=== PATIENT | female | born 1980 | race Caucasian/White ===

== ENCOUNTER 2018-05-23 13:08 | Emergency (ER) | payer MEDICAID ==
[~2018-05-23] VITALS: Ht 154.9 cm; Wt 72.7 kg
[~2018-05-23 13:08] MED LIST: TRAZ-218 PO
[2018-05-23 13:54] VITALS: BP 153/82
[2018-05-23 13:57] LABS: BASOPHILS % (AUTO) 0 % (0-1); EOSINOPHILS # (AUTO) 0.1 X10'3 (0-0.9); HEMATOCRIT 44.8 % (35.0-45.0); HEMOGLOBIN 15.3 g/dl (12.0-16.0); LYMPHOCYTES # (AUTO) 2.3 X10'3 (1.1-4.8); LYMPHOCYTES % (AUTO) 17.9 % (21-51); MEAN CORPUSCULAR HEMOGLOBIN 29.5 PG (27.0-31.0); MEAN CORPUSCULAR HGB CONC 34.2 g/dL (33.0-36.5); MEAN CORPUSCULAR VOLUME 86.4 FL (78-98); MEAN PLATELET VOLUME 8.2 FL (7.4-10.4); MONOCYTES # (AUTO) 0.5 X10'3 (0-0.9); MONOCYTES % (AUTO) 4.1 % (2-12); NEUTROPHILS # (AUTO) 9.9 X10'3 (1.8-7.7); PLATELET COUNT 290 X10'3 (140-440); RED BLOOD COUNT 5.18 X10'6 (4.20-5.60); WHITE BLOOD COUNT 12.8 X10'3 (4.5-11.0)
[2018-05-23 14:04] LABS: CLARITY,URINE SLIGHTLY CLOUDY (Clear); COLOR,URINE STRAW (Yellow); GLUCOSE, URINE NEGATIVE (Neg); KETONES,URINE NEGATIVE (Neg); LEUKOCYTE ESTERASE ,URINE SMALL (Neg); NITRITES, URINE NEGATIVE (Neg); OCCULT BLOOD,URINE NEGATIVE (Neg); PROTEIN,URINE NEGATIVE (Neg); UROBILINOGEN,URINE 0.2 E.U/dL (0.2-1.0)
[2018-05-23 14:08] LABS: UA COLLECTION TYPE CLN CATCH MIDSTREAM
[2018-05-23 14:10] LABS: SQUAMOUS EPITHELIAL CELL,UR MODERATE /LPF (FEW)
[2018-05-23 14:11] LABS: BACTERIA,URINE 1+ /HPF (Neg); RBC,URINE 0-2 /HPF (0-2)
[2018-05-23 14:12] LABS: ALANINE AMINOTRANSFERASE 30 U/L (12-78); ALBUMIN 3.6 G/DL (3.4-5.0); ALBUMIN/GLOBULIN RATIO 0.8 (1.1-1.5); ALKALINE PHOSPHATASE 62 IU/L (46-116); ANION GAP 13 (8-16); ASPARTATE AMINO TRANSFERASE 17 U/L (10-37); BILIRUBIN,TOTAL 0.4 MG/DL (0.1-1.0); BLOOD UREA NITROGEN 4 MG/DL (7-18); CHLORIDE 101 MMOL/L (99-107); GLUCOSE 94 MG/DL (70-104); POTASSIUM 3.8 MMOL/L (3.5-5.1); SODIUM 139 MMOL/L (135-145); TOTAL CARBON DIOXIDE 25.3 MMOL/L (24-32); TOTAL PROTEIN 7.9 G/DL (6.4-8.2); eGFR 82 ML/MIN
[2018-05-23 14:13] LABS: TRICHOMONAS,URINE MOD /HPF (NEGATIVE); WBC,URINE 0-4 /HPF (0-4)
[2018-05-23 14:14] LABS: TRANSITIONAL EPI CELLS,URINE FEW /HPF
== END 2018-05-23 14:37 | disposition left against medical advice (07) ==
LOC: ER 13:09
DX: Z00.8 Encounter for other general examination (principal); Z56.0 Unemployment, unspecified; Z79.899 Other long term (current) drug therapy
CPT/HCPCS: 36415; 80053; 81001; 85025; 87088; 99283

== ENCOUNTER 2018-05-23 20:45 | Emergency (ER) | payer MEDICAID ==
[~2018-05-23] VITALS: Ht 154.9 cm; Wt 75.0 kg
[2018-05-23 20:55] VITALS: BP 114/61
[2018-05-23] MEDS ORDERED: metroNIDAZOLE 500mg tablet PO ONE (21:20)
--- NOTE | 2018-05-23 21:36 | NUR ---
TELE PSYCH CONSULE INITIATED
--- NOTE | 2018-05-23 22:14 | NUR ---
PATIENT PROVIDED A BLANKET CURRENTLY IN BED COVERS ON EYES CLOSED NO OBSERVABLE S/S OF ACUTE STRESS AT THIS TIME
[2018-05-23 22:20] LABS: URINE AMPHETAMINE SCREEN NEGATIVE (Neg); URINE BARBITUATE SCREEN NEGATIVE (Neg); URINE BENZODIAZEPINES SCREEN NEGATIVE (Neg); URINE CANNABINOID SCREEN NEGATIVE (Neg); URINE COCAINE SCREEN NEGATIVE (Neg); URINE METHADONE SCREEN NEGATIVE (Neg); URINE OPIATE SCREEN NEGATIVE (Neg); URINE PHENCYCLIDINE SCREEN NEGATIVE (Neg)
--- NOTE | 2018-05-23 23:37 | NUR ---
SPOKE TO PSYCH WILL BE CALLING TELE MACHINE ANY MOMENT
--- NOTE | 2018-05-24 01:47 | NUR ---
tele recommendation is to have patient evaluated for possible involuntary hold, dr. limon applied [id number] patient will be evaluated by the [facility] in a.m. 05/24/18
--- NOTE | 2018-05-24 01:49 | NUR ---
patient requested hob down to be flat, patient in good spirits when finding out patient will be evaluated by [facility] in the a.m.
--- NOTE | 2018-05-24 02:49 | NUR ---
patient in room in bed covers on eyes closed rr even and un-labored no observable s/s of acute stress at this time
--- NOTE | 2018-05-24 04:41 | NUR ---
PATIENT IN ROOM ASKING TO LEAVE STATED TO PATIENT THAT THEY ARE CURRENTLY ON A INVOLUNTARY HOLD AND WILL BE EVALUATED IN THE A.M. BY [facility] FOR DC'D OR PLACEMENT OR [facility] 5150 HOLD, PATIENT STATED THAT THEY UNDERSTOOD.
--- NOTE | 2018-05-24 05:18 | NUR ---
PATIENT IN ROOM IN BED COVERS ON EYES CLOSED RR EVEN UN-LABORED NO OBSERVABLE S/S OF ACUTE STRESS AT THIS TIME
--- NOTE | 2018-05-24 06:59 | NUR ---
ASSUMED PT CARE, PT SNORING IN BED FOR NOW. TECH ASSESSING BELONGINGS AND FILLING OUT INVENTORY LIST
--- NOTE | 2018-05-24 10:00 | NUR ---
Assummed care of patient. Patient reports mild anxiety and requests something to do. Crayons and paper provided.
--- NOTE | 2018-05-24 11:54 | NUR ---
called pt mom jed cuadra [phone] per pt request, called number, no answer, left message, pt reports she lives with mom/dad and nephew
--- NOTE | 2018-05-24 11:56 | NUR ---
PT MOTHER GISSELLE CALLED BACK, TRANSFERED CALL INTO PT ROOM 21.
--- NOTE | 2018-05-24 12:00 | NUR ---
Patient observed resting.
--- NOTE | 2018-05-24 12:50 | NUR ---
Patient requests medication to help her sleep and also states that she used to take wellbutrin and would like to take that again. Patient reports that she picks her medications up from [facility] in [facility]. Pharmacy contacted, patient last picked up trazadone in January 2018 and last picked up wellbutrin in 2015.
--- NOTE | 2018-05-24 14:18 | NUR ---
Patient being discharged home, information provided. Patient states that her mother will come and get her.
== END 2018-05-24 15:47 | disposition home or self-care (01) ==
LOC: ER 20:46
DX: F99 Mental disorder, not otherwise specified (principal); R44.3 Hallucinations, unspecified; Z56.0 Unemployment, unspecified; Z79.899 Other long term (current) drug therapy
CPT/HCPCS: 80305; 99283; J3490

== ENCOUNTER 2018-11-19 21:19 | Emergency (ER) | payer MEDICAID ==
[~2018-11-19] VITALS: Ht 154.9 cm; Wt 61.4 kg
[~2018-11-19 21:19] MED LIST changes: -TRAZ-218 PO; +TRAZ-251 PO
[2018-11-19 21:32] VITALS: BP 117/51
[2018-11-19 22:06] LABS: BASOPHILS % (AUTO) 0.4 % (0-1); EOSINOPHILS # (AUTO) 0.1 X10'3 (0-0.9); EOSINOPHILS % (AUTO) 0.7 % (0-6); HEMATOCRIT 39.2 % (35.0-45.0); HEMOGLOBIN 13.2 g/dl (12.0-16.0); LYMPHOCYTES # (AUTO) 2.9 X10'3 (1.1-4.8); LYMPHOCYTES % (AUTO) 31.3 % (21-51); MEAN CORPUSCULAR HEMOGLOBIN 30.1 PG (27.0-31.0); MEAN CORPUSCULAR HGB CONC 33.7 g/dL (33.0-36.5); MEAN CORPUSCULAR VOLUME 89.5 FL (78-98); MEAN PLATELET VOLUME 8.3 FL (7.4-10.4); MONOCYTES # (AUTO) 0.5 X10'3 (0-0.9); MONOCYTES % (AUTO) 5.9 % (2-12); NEUTROPHILS # (AUTO) 5.7 X10'3 (1.8-7.7); NEUTROPHILS % (AUTO) 61.7 % (42-75); PLATELET COUNT 259 X10'3 (140-440); RED BLOOD COUNT 4.38 X10'6 (4.20-5.60); RED CELL DISTRIBUTION WIDTH 13.2 % (11.5-14.5); WHITE BLOOD COUNT 9.2 X10'3 (4.5-11.0)
[2018-11-19 22:17] LABS: URINE HCG NEGATIVE (NEG)
[2018-11-19 22:20] LABS: CLARITY,URINE CLEAR (Clear); COLOR,URINE YELLOW (Yellow); GLUCOSE, URINE NEGATIVE (Neg); KETONES,URINE NEGATIVE (Neg); LEUKOCYTE ESTERASE ,URINE NEGATIVE (Neg); NITRITES, URINE NEGATIVE (Neg); OCCULT BLOOD,URINE LARGE (Neg); PROTEIN,URINE NEGATIVE (Neg); UROBILINOGEN,URINE 0.2 E.U/dL (0.2-1.0)
[2018-11-19 22:24] LABS: ACETAMINOPHEN < 2.0 UG/ML (10-30); ALANINE AMINOTRANSFERASE 31 U/L (12-78); ALBUMIN 3.3 G/DL (3.4-5.0); ALBUMIN/GLOBULIN RATIO 0.9 (1.1-1.5); ALKALINE PHOSPHATASE 57 IU/L (46-116); ANION GAP 7 (8-16); ASPARTATE AMINO TRANSFERASE 13 U/L (10-37); BILIRUBIN,TOTAL 0.2 MG/DL (0.1-1.0); BLOOD UREA NITROGEN 9 MG/DL (7-18); BUN/CREATININE RATIO 11.7 (6.6-38.0); CALCIUM 8.9 MG/DL (8.5-10.1); CHLORIDE 107 MMOL/L (99-107); CREATININE 0.77 MG/DL (0.40-0.90); ETHANOL < 0.010 GM/DL (0.0-0.010); GLUCOSE 92 MG/DL (70-104); LIPASE 213 U/L (73-393); SODIUM 140 MMOL/L (135-145); TOTAL CARBON DIOXIDE 25.6 MMOL/L (24-32); TOTAL PROTEIN 7.1 G/DL (6.4-8.2); eGFR 85 ML/MIN
[2018-11-19 22:27] LABS: UA COLLECTION TYPE CLN CATCH MIDSTREAM
[2018-11-19 22:28] LABS: BACTERIA,URINE FEW /HPF (Neg); RBC,URINE 0-2 /HPF (0-2); SQUAMOUS EPITHELIAL CELL,UR FEW /LPF (FEW); WBC,URINE 0-4 /HPF (0-4)
[2018-11-19 22:32] LABS: URINE AMPHETAMINE SCREEN NEGATIVE (Neg); URINE BARBITUATE SCREEN NEGATIVE (Neg); URINE BENZODIAZEPINES SCREEN NEGATIVE (Neg); URINE CANNABINOID SCREEN NEGATIVE (Neg); URINE COCAINE SCREEN NEGATIVE (Neg); URINE METHADONE SCREEN NEGATIVE (Neg); URINE OPIATE SCREEN NEGATIVE (Neg); URINE PHENCYCLIDINE SCREEN NEGATIVE (Neg)
[2018-11-19] MEDS ORDERED: ONDA4TAB6 PO (22:32)
[2018-11-19] MEDS ORDERED: ondansetron 4mg rapidly disintigrating tab PO ONE (22:35)
== END 2018-11-19 22:50 | disposition home or self-care (01) ==
LOC: ER 21:19
DX: R11.2 Nausea with vomiting, unspecified (principal); G43.909 Migraine, unspecified, not intractable, without status migrainosus; E11.9 Type 2 diabetes mellitus without complications; Z79.899 Other long term (current) drug therapy; Z88.8 Allergy status to other drugs, medicaments and biological substances; Z91.030 Bee allergy status; Z56.0 Unemployment, unspecified
CPT/HCPCS: 36415; 80053; 80305; 80320; 80329; 81001; 81025; 83690; 85025; 99283; J2405

== ENCOUNTER 2019-04-12 15:53 | Outpatient (CLI) | payer MEDICAID ==
[~2019-04-12 15:53] MED LIST changes: +ONDA4TAB6 PO
== END 2019-04-12 23:59 | disposition home or self-care (01) ==
LOC: RAD 15:53
PROVIDERS: ATTEND Family Medicine
DX: R41.3 Other amnesia (principal)
CPT/HCPCS: 95819

== ENCOUNTER 2019-12-12 20:03 | Emergency (ER) | payer MEDICAID ==
[~2019-12-12] VITALS: Ht 154.9 cm; Wt 81.2 kg
[2019-12-12 20:09] VITALS: BP 126/64
[2019-12-12] MEDS ORDERED: NAPR-56 PO (21:17)
[2019-12-12] MEDS ORDERED: PENI250T2 PO (21:17)
== END 2019-12-12 21:35 | disposition home or self-care (01) ==
LOC: ER 20:04
DX: K08.89 Other specified disorders of teeth and supporting structures (principal); F32.9 Major depressive disorder, single episode, unspecified; Z56.0 Unemployment, unspecified; Z88.8 Allergy status to other drugs, medicaments and biological substances; Z79.2 Long term (current) use of antibiotics; Z79.899 Other long term (current) drug therapy
CPT/HCPCS: 96372; 99283

== ENCOUNTER 2019-12-22 12:58 | Emergency (ER) | payer MEDICAID ==
[~2019-12-22] VITALS: Ht 154.9 cm; Wt 81.0 kg
[~2019-12-22 12:58] MED LIST changes: +NAPR-56 PO; +PENI250T2 PO
[2019-12-22 15:22] VITALS: BP 135/84
[2019-12-22] MEDS ORDERED: IBUP-1984 PO (15:29)
[2019-12-22] MEDS ORDERED: CLIN300C70 PO (15:29)
== END 2019-12-22 15:57 | disposition home or self-care (01) ==
LOC: ER 12:59
DX: K04.7 Periapical abscess without sinus (principal); F32.9 Major depressive disorder, single episode, unspecified; Z56.0 Unemployment, unspecified; Z88.8 Allergy status to other drugs, medicaments and biological substances; Z79.2 Long term (current) use of antibiotics; Z79.899 Other long term (current) drug therapy
CPT/HCPCS: 99283

== ENCOUNTER 2020-02-20 19:07 | Emergency (ER) | payer MEDICAID ==
[~2020-02-20] VITALS: Ht 154.9 cm; Wt 79.5 kg
[~2020-02-20 19:07] MED LIST changes: -NAPR-56 PO; -PENI250T2 PO
[2020-02-20] MEDS ORDERED: dicyclomine 10 MG capsule PO ONE (20:20)
[2020-02-20] MEDS ORDERED: ketorolac tromethamine 15mg/ml inj. IM ONE (20:20)
[2020-02-20 20:46] LABS: BASOPHILS % (AUTO) 0.2 % (0-1); EOSINOPHILS % (AUTO) 0.1 % (0-6); HEMATOCRIT 35.2 % (35.0-45.0); HEMOGLOBIN 11.7 g/dl (12.0-16.0); LYMPHOCYTES # (AUTO) 1.1 X10'3 (1.1-4.8); MEAN CORPUSCULAR HEMOGLOBIN 28.8 PG (27.0-31.0); MEAN CORPUSCULAR HGB CONC 33.2 g/dL (33.0-36.5); MEAN CORPUSCULAR VOLUME 86.8 FL (78-98); MEAN PLATELET VOLUME 7.4 FL (7.4-10.4); MONOCYTES # (AUTO) 0.9 X10'3 (0-0.9); MONOCYTES % (AUTO) 5.5 % (2-12); NEUTROPHILS # (AUTO) 13.9 X10'3 (1.8-7.7); NEUTROPHILS % (AUTO) 87.2 % (42-75); PLATELET COUNT 290 X10'3 (140-440); RED BLOOD COUNT 4.05 X10'6 (4.20-5.60); RED CELL DISTRIBUTION WIDTH 14.3 % (11.5-14.5)
[2020-02-20 21:00] LABS: ALANINE AMINOTRANSFERASE 19 U/L (12-78); ALBUMIN 3.5 G/DL (3.4-5.0); ALBUMIN/GLOBULIN RATIO 0.9 (1.1-1.5); ALKALINE PHOSPHATASE 66 IU/L (46-116); ANION GAP 9 (8-16); ASPARTATE AMINO TRANSFERASE 13 U/L (10-37); BILIRUBIN,TOTAL 0.5 MG/DL (0.1-1.0); BLOOD UREA NITROGEN 9 MG/DL (7-18); BUN/CREATININE RATIO 10.1 (6.6-38.0); CALCIUM 8.5 MG/DL (8.5-10.1); CHLORIDE 102 MMOL/L (99-107); CREATININE 0.89 MG/DL (0.40-0.90); GLUCOSE 103 MG/DL (70-104); POTASSIUM 3.7 MMOL/L (3.5-5.1); SODIUM 135 MMOL/L (135-145); TOTAL CARBON DIOXIDE 24.2 MMOL/L (24-32); TOTAL PROTEIN 7.5 G/DL (6.4-8.2); eGFR 71 ML/MIN
[2020-02-20 22:11] LABS: URINE HCG NEGATIVE (NEG)
[2020-02-20 22:15] LABS: CLARITY,URINE CLEAR (Clear); COLOR,URINE YELLOW (Yellow); GLUCOSE, URINE NEGATIVE (Neg); KETONES,URINE TRACE mg/dl (Neg); LEUKOCYTE ESTERASE ,URINE NEGATIVE (Neg); NITRITES, URINE POSITIVE (Neg); OCCULT BLOOD,URINE TRACE-INTACT (Neg); PH,URINE 5.5 (4.8-8.0); PROTEIN,URINE NEGATIVE (Neg)
[2020-02-20 22:16] LABS: UA COLLECTION TYPE CLN CATCH MIDSTREAM
[2020-02-20 22:20] LABS: BACTERIA,URINE 4+ /HPF (Neg); RBC,URINE 0-2 /HPF (0-2); SQUAMOUS EPITHELIAL CELL,UR FEW /LPF (FEW)
[2020-02-20] MEDS ORDERED: SULF1TAB49 PO (22:28)
[2020-02-20] MEDS ORDERED: sulfamethoxazole/trimethoprim DS (800/160mg) tablet PO ONE (22:30)
[2020-02-20 23:15] VITALS: BP 97/41
== END 2020-02-20 22:43 | disposition home or self-care (01) ==
LOC: ER 19:08
DX: N39.0 Urinary tract infection, site not specified (principal); R10.31 Right lower quadrant pain; R11.0 Nausea; R42 Dizziness and giddiness; G43.909 Migraine, unspecified, not intractable, without status migrainosus; F32.9 Major depressive disorder, single episode, unspecified; F17.200 Nicotine dependence, unspecified, uncomplicated; Z56.0 Unemployment, unspecified; Z88.8 Allergy status to other drugs, medicaments and biological substances; Z79.2 Long term (current) use of antibiotics; Z79.899 Other long term (current) drug therapy
CPT/HCPCS: 36415; 80053; 81001; 81025; 85025; 87088; 87186; 96372; 99283; J1885; 87077

== ENCOUNTER 2021-05-22 18:10 | Emergency (ER) | payer MEDICAID ==
[~2021-05-22] VITALS: Ht 154.9 cm; Wt 82.0 kg
[2021-05-22 18:54] VITALS: BP 120/76
--- NOTE | 2021-05-22 19:15 | NUR ---
pt mot in RAP at this time.
--- NOTE | 2021-05-22 19:40 | NUR ---
pt still not in RAP to be seen by provider.
== END 2021-05-22 20:58 | disposition left against medical advice (07) ==
LOC: ER 20:28
DX: J02.9 Acute pharyngitis, unspecified (principal); R51.9 Headache, unspecified; H92.03 Otalgia, bilateral; Z53.21 Procedure and treatment not carried out due to patient leaving prior to being seen by health care provider